=== PATIENT | female | born 2000 | race Caucasian/White ===

== ENCOUNTER 2020-11-28 17:40 | Emergency (ER) | payer OTHER, SELFPAY ==
--- NOTE | ~2020-11-28 | CT_ITS ---
EXAMINATION: CT ABDOMEN AND PELVIS WITH CONTRAST CLINICAL INFORMATION: Mid abdominal pain. Question of appendicitis. COMPARISON: None TECHNIQUE: Multidetector volumetric images were obtained from the superior aspect of the liver through the pubic symphysis following administration 85 mL of Omnipaque 350 intravenous contrast. Sagittal and coronal reformatted images were obtained on the technologist's workstation. Oral contrast: No This CT examination was performed using dose optimization techniques as appropriate, variously including the following: *Automated exposure control *Adjustment of mA and/or kV according to patient size (this includes techniques or standardized protocols for targeted exams where dose is matched to indication/reason for exam; i.e. extremities or head) *Use of iterative reconstruction technique DLP: 444 mGy-cm FINDINGS: LUNG BASES: The visualized lung bases are unremarkable. LIVER, GALLBLADDER, AND BILIARY TREE: The liver is normal in size, shape, and attenuation. No focal hepatic lesion or biliary ductal dilatation is present. Gallbladder unremarkable from a CT imaging standpoint. PANCREAS: Unremarkable. SPLEEN: Unremarkable. ADRENAL GLANDS: Unremarkable. KIDNEYS AND URETERS: The kidneys are normal in size, shape, and attenuation. No hydronephrosis, hydroureter, or calculi seen. No perinephric stranding. BLADDER: Unremarkable. GASTROINTESTINAL TRACT: The appendix is normal. There are are multiple loops of ileum which demonstrate mild edematous wall thickening reflective of an enteritis. The terminal ileum itself appears largely unremarkable. Stomach and colon are unremarkable. ABDOMINAL WALL: No significant hernia is appreciated. LYMPH NODES: Normal. VASCULAR: Unremarkable. PELVIC VISCERA: Uterus and adnexa unremarkable. OSSEOUS STRUCTURES: Unremarkable. CT/CT abdomen pelvis w con IMPRESSION: * Multiple mildly edematous and inflamed loops of ileum within the lower abdomen and pelvis reflective of an enteritis for which infectious and inflammatory etiologies are considered. * The appendix is normal. * Gallbladder unremarkable.
[2020-11-28 17:45] VITALS: BP 144/81; PULSE 128; RESP 24; TEMP 37.5; O2SAT 97; BMI 24.1
--- NOTE | 2020-11-28 19:57 | ED.ABDPAIN ---
HPI - Abdominal Pain General Chief Complaint: Abdominal Pain Stated Complaint: abd pain Time Seen by Provider: 11/28/20 18:59 Source: patient Mode of arrival: ambulatory Limitations: no limitations History of Present Illness HPI narrative: Patient presented to epigastric/mid abdominal pain described as sharp acid burning sensation since last night with diarrhea. Patient states nausea, but no fever, chills. MD elicited complaint: abdominal pain Related Data Allergies Allergy/AdvReac Type Severity Reaction Status Date / Time nut - unspecified [NUTS] Allergy Severe THROAT Verified 11/28/20 17:44 CLOSES ibuprofen [IBUPROFEN] Allergy Intermediate RASH TO ABD Verified 11/28/20 17:44 Review of Systems Review of Systems Yes all other systems are reviewed and are negative Constitutional: Reports as per HPI and Reports no additional constitutional complaints Eyes: Reports as per HPI and Reports no additional eye complaints Reports system reviewed and no additional complaints, except as documented and Reports as per HPI Cardiovascular: Reports as per HPI and Reports no additional cardiovascular complaints Respiratory: Reports as per HPI and Reports no additional respiratory complaints Gastrointestinal: Reports as per HPI, Reports no additional gastrointestinal complaints and Reports abdominal pain Genitourinary: Reports no additional female genitourinary complaints and Reports as per HPI Musculoskeletal: Reports no additional musculoskeletal complaints and Reports as per HPI Reports system reviewed and no additional complaints, except as documented and Reports as per HPI Psychiatric: Reports no additional psychiatric complaints and Reports as per HPI Physical Exam Vital Signs: Vital Signs: Last Vital Signs Temp 99.5 F 11/28/20 17:45 Pulse 128 H 11/28/20 17:45 Resp 24 H 11/28/20 17:45 BP 144/81 H 11/28/20 17:45 Pulse Ox 97 11/28/20 17:45 Body Mass Index 24.1 Const: General: acute distress Orientation/consciousness: patient oriented x3 HENMT: Head: Yes normal to inspection, Yes No palpable skull fracture present, Yes normocephalic, Yes atraumatic and No abrasion Eyes: General: appearance normal, both eyes and all related structures Neck: Neck: Yes normal visual inspection, Yes full ROM, Yes no lymphadenopathy, Yes no meningeal signs, Yes trachea midline, Yes supple and No tender Chest: Chest palpation & inspection: normal inspection of the chest and normal palpation of entire chest wall Resp: Effort & Inspection: normal respiratory effort and able to speak in complete sentences Auscultation: clear to auscultation bilaterally Cardio: Jugular venous distension: no JVD Heart sounds: S1 normal heart sound present and S2 normal heart sound present GI: Inspection: Yes normal to inspection and No abdominal wall ecchymosis Palpation (GI): not soft, not firm, Tenderness to palpation present (GI) in the epigastrum, no guarding and not rigid : General: No CVA tenderness and Yes no CVA tenderness Back/Spine/Pelvis: Back: no CVA tenderness, No CVA tenderness and No back tenderness Skin: General skin exam: no rashes or lesions noted and elasticity normal Neuro: General: patient oriented x3, no meningeal signs and CN's II-XI intact bilaterally Cranial nerves: Yes CN's II-XII intact bilaterally Extrem: General: Yes normal to inspection and Yes full ROM Psych: Appearance: grossly normal, well kempt and not disheveled Course Course Course Narrative: Patient states symptoms similar to her gastritis. Patient will be given GI cocktail including Pepcid. Patient will have labs drawn. Reevaluation(s) Reevaluation #1: Patient was sent for CT scan due to her stating epigastric/mid gastric abdominal pain. Patient was sent to rule appendicitis. CT scan came back negative for cholecystitis or appendicitis. CT scan came back positive for enteritis. Patient has no elevated white count. Patient did not have any diarrhea really episode in the ED. Patient will be discharged. Patient states she had earlier diarrhea today but none during ED visit. Repeat heart rate on monitor was 86 and Time: 23:34 MDM - Abdominal Pain MDM Narrative Medical decision making narrative: Gastroenteritis Lab Data Result diagrams: 11/28/20 20:20 11/28/20 20:20 Labs: Lab Results 11/28/20 11/28/20 11/28/20 Range/Units 20:20 20:20 20:20 WBC 9.3 (4.8-10.8) X10*3/uL RBC 4.54 (4.20-5.50) X10*6/uL Hgb 14.0 (12.0-16.0) g/dl Hct 41.9 (37-47) % MCV 92.3 (80-98) fL MCH 30.8 (27.0-33.0) pg MCHC 33.4 (31.0-35.0) g/dl RDW 12.5 (11.0-16.0) % Plt Count 339 (160-400) X10*3/uL MPV 10.0 (9.4-12.3) fL Immature Gran % (Auto) 0.2 (0.0-0.4) % Neut % (Auto) 79.6 H (45-73) % Lymph % (Auto) 12.8 L (20-40) % [place] % (Auto) 6.0 (2-11) % Eos % (Auto) 1.1 (0-4) % Baso % (Auto) 0.3 (0-2) % Lymph # (Auto) 1.2 (1.2-4.9) X10*3/uL [place] # (Auto) 0.6 (0.1-1.2) X10*3/uL Eos # (Auto) 0.1 (0.0-0.4) X10*3/uL Baso # (Auto) 0.0 (0.0-0.2) X10*3/uL Abs Immat Gran (auto) 0.02 (0.00-0.03) X10*3/uL Absolute Neuts (auto) 7.4 (2.0-8.3) X10*3/uL Absolute Nucleated RBC 0.000 (0.0-0.012) X10*3/uL Nucleated RBC % (auto) 0.0 (0.0-0.2) /100WBC Sodium 139 (135-145) mmol/L Potassium 3.6 (3.3-5.1) mmol/L Chloride 102 (96-108) mmol/L Carbon Dioxide 24 (22-29) mmol/L Anion Gap 17 (12-20) BUN 19 H (9-16) mg/dL Creatinine 0.81 (0.5-1.4) mg/dL Estim Creat Clear Calc 98.9 Estimated GFR > 60 Random Glucose 111 (60-115) mg/dL Calcium 9.8 (8.4-10.2) mg/dL Total Bilirubin 1.1 H (0.0-1.0) mg/dL Direct Bilirubin 0.4 (0.0-0.5) mg/dL AST 24 (5-31) U/L ALT 13 (0-31) U/L Alkaline Phosphatase 75 (39-117) U/L Total Protein 8.0 (6.5-8.0) g/dL Albumin 4.5 (3.5-5.0) g/dL Lipase 12 (8-78) U/L Beta HCG, Quant < 2 mIU/mL Urine Color Urine Appearance Urine pH (5.0-8.0) Ur Specific [place] (1.005-1.025) Urine Protein (NEG-TRACE) MG/DL Urine Glucose (UA) (NEG) MG/DL Urine Ketones (NEG) MG/DL Urine Blood (NEG) Urine Nitrite (NEG) Ur Leukocyte Esterase (NEG) Urine Test (NEGATIVE) 11/28/20 11/28/20 Range/Units 22:02 22:02 WBC (4.8-10.8) X10*3/uL RBC (4.20-5.50) X10*6/uL Hgb (12.0-16.0) g/dl Hct (37-47) % MCV (80-98) fL MCH (27.0-33.0) pg MCHC (31.0-35.0) g/dl RDW (11.0-16.0) % Plt Count (160-400) X10*3/uL MPV (9.4-12.3) fL Immature Gran % (Auto) (0.0-0.4) % Neut % (Auto) (45-73) % Lymph % (Auto) (20-40) % [place] % (Auto) (2-11) % Eos % (Auto) (0-4) % Baso % (Auto) (0-2) % Lymph # (Auto) (1.2-4.9) X10*3/uL [place] # (Auto) (0.1-1.2) X10*3/uL Eos # (Auto) (0.0-0.4) X10*3/uL Baso # (Auto) (0.0-0.2) X10*3/uL Abs Immat Gran (auto) (0.00-0.03) X10*3/uL Absolute Neuts (auto) (2.0-8.3) X10*3/uL Absolute Nucleated RBC (0.0-0.012) X10*3/uL Nucleated RBC % (auto) (0.0-0.2) /100WBC Sodium (135-145) mmol/L Potassium (3.3-5.1) mmol/L Chloride (96-108) mmol/L Carbon Dioxide (22-29) mmol/L Anion Gap (12-20) BUN (9-16) mg/dL Creatinine (0.5-1.4) mg/dL Estim Creat Clear Calc Estimated GFR Random Glucose (60-115) mg/dL Calcium (8.4-10.2) mg/dL Total Bilirubin (0.0-1.0) mg/dL Direct Bilirubin (0.0-0.5) mg/dL AST (5-31) U/L ALT (0-31) U/L Alkaline Phosphatase (39-117) U/L Total Protein (6.5-8.0) g/dL Albumin (3.5-5.0) g/dL Lipase (8-78) U/L Beta HCG, Quant mIU/mL Urine Color DARK YELLOW Urine Appearance CLEAR Urine pH 6.0 (5.0-8.0) Ur Specific [place] >= 1.030 H (1.005-1.025) Urine Protein TRACE (NEG-TRACE) MG/DL Urine Glucose (UA) NEG (NEG) MG/DL Urine Ketones >=80 (NEG) MG/DL Urine Blood NEG (NEG) Urine Nitrite NEG (NEG) Ur Leukocyte Esterase NEG (NEG) Urine Test NEGATIVE (NEGATIVE) Discharge Plan Discharge Clinical Impression: Gastroenteritis Patient Disposition: Home, Self-Care Instructions: Gastroenteritis (ED) Additional Instructions: Return to the ED immediately for worsening abdominal pain, inability to tolerate solid food/liquids, blood in stool, intractable fever, chills, or any other concerning symptoms. He did take [id number] Tylenol for pain relief. Referrals: Mary Peng MD [Primary Care Provider] - 2 days (CT scan shows enteritis. Patient presents to ED for abdominal pain and diarrhea. CT scan negative for appendicitis, cholecystitis, or pancreatitis.) Stand Alone Forms: Work/School Release Interventions: ED Discharge Assessment Last Done: 11/29/20 00:04 Discharge Date/Time: 11/29/20 00:06 Print Language: [place] PMF Social History Social History Advance Directives: No Advance Directives Information Provided: Yes
--- NOTE | 2020-11-28 20:00 | PC.NURSE ---
PT TO ROOM CHG INTO GOWN AND MD AT BEDSIDE FOR EVAL. PT C/O MID ABD PAIN. +ACTIVE VOMITING IN STRETCHER. HL PLACED TO LAC, LABS DRAWN TO LAB. NS UP AND RUNNING W/O SITE INTACT. PT MEDICATED PER EMAR FOR ABD PAIN AND NUASEA. WILL CONTINUE TO MONITOR PT.
[2020-11-28] MEDS: 0.9 % Sodium Chloride 1,000 ML 999 ML IV (20:21)
[2020-11-28 20:30] LABS: MANUAL DIFF FLAG NO
[2020-11-28 20:34] LABS: Basophils Percent Auto 0.3 % (0-2); Eosinophils Absolute Auto 0.1 X10*3/uL (0.0-0.4); Eosinophils Percent Auto 1.1 % (0-4); Hematocrit 41.9 % (37-47); Imm Gran Abs Auto 0.02 X10*3/uL (0.00-0.03); Imm Gran Pct Auto 0.2 % (0.0-0.4); Lymphocytes Absolute Auto 1.2 X10*3/uL (1.2-4.9); Lymphocytes Percent Auto 12.8 % (20-40); Mean Corpuscular HGB Conc 33.4 g/dl (31.0-35.0); Mean Corpuscular Hemoglobin 30.8 pg (27.0-33.0); Mean Corpuscular Volume 92.3 fL (80-98); Monocytes Absolute Auto 0.6 X10*3/uL (0.1-1.2); Neutrophils Absolute Auto 7.4 X10*3/uL (2.0-8.3); Neutrophils Percent Auto 79.6 % (45-73); Platelet Count 339 X10*3/uL (160-400); Red Blood Count 4.54 X10*6/uL (4.20-5.50); Red Cell Distribution Width 12.5 % (11.0-16.0); White Blood Count 9.3 X10*3/uL (4.8-10.8)
[2020-11-28] MEDS: Lidocaine HCl Viscous 2 % 15 ML SOLUTION MUCOUS MEM (20:34)
[2020-11-28] MEDS: PHENobarb/Hyoscy/Atropine/Scop 10 ML ELIXIR PO (20:34)
[2020-11-28] MEDS: Famotidine/PF 20 MG/2 ML VIAL IVPUSH (20:34)
[2020-11-28] MEDS: Magnesium Hydrox/Alum Hydrox 30 ML ORAL.SUSP PO (20:34)
[2020-11-28 20:56] LABS: Lipase 12 U/L (8-78)
[2020-11-28 20:58] LABS: Alanine Aminotransferase 13 U/L (0-31); Albumin Level 4.5 g/dL (3.5-5.0); Alkaline Phosphatase 75 U/L (39-117); Anion Gap 17 (12-20); Aspartate Amino Transferase 24 U/L (5-31); Bilirubin Direct 0.4 mg/dL (0.0-0.5); Bilirubin Total 1.1 mg/dL (0.0-1.0); Blood Urea Nitrogen 19 mg/dL (9-16); Calcium 9.8 mg/dL (8.4-10.2); Carbon Dioxide 24 mmol/L (22-29); Chloride 102 mmol/L (96-108); Creatinine Clr Calc Pharmacy 98.9; Estimated Glomerular Filt Rate > 60; Glucose Random 111 mg/dL (60-115); Potassium 3.6 mmol/L (3.3-5.1); Sodium 139 mmol/L (135-145)
[2020-11-28 21:28] LABS: HCG Quantitative < 2 mIU/mL
[2020-11-28 22:09] LABS: Glucose Urine UA NEG (NEG); Leukocyte Esterase Urine NEG (NEG); Nitrite Urine NEG (NEG); Specific Gravity - Urine >= 1.030 (1.005-1.025); Urine Blood NEG (NEG); Urine Ketones >=80 MG/DL (NEG); Urine Protein TRACE MG/DL (NEG-TRACE)
--- NOTE | 2020-11-28 22:09 | PC.NURSE ---
pt to ct
[2020-11-28 22:10] LABS: Appearance Urine CLEAR; Color Urine DARK YELLOW
[2020-11-28 22:12] LABS: UPreg QC Valid YES; Urine Pregnancy NEGATIVE (NEGATIVE)
[2020-11-28] MEDS: iohexoL 350 MG/ML 100 ML INFUS..BTL IV (22:15)
== END 2020-11-29 00:06 | disposition home or self-care (01) ==
PROVIDERS: Physician Assistant; Emergency Provider Emergency Medicine; PCP Internal Medicine
DX: K52.9 Noninfective gastroenteritis and colitis, unspecified (principal)
CPT/HCPCS: 36415; 74177; 80048; 80076; 81003; 81025; 83690; 84702; 85025; 96361; 96374; 99283; 99284; Q9967

== ENCOUNTER 2021-12-23 08:54 | Emergency (ER) | payer OTHER, SELFPAY ==
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
[2021-12-23 09:06] VITALS: BP 132/84; PULSE 76; RESP 16; TEMP 36.7; O2SAT 98; BMI 21.6
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
[2021-12-23 09:49] VITALS: BP 115/75; PULSE 67; TEMP 36.7; O2SAT 99
[2021-12-23] MEDS: Acetaminophen 325 MG TABLET 650 MG PO (09:53)
[2021-12-23 10:38] LABS: HCG Quantitative < 2 mIU/mL
[2021-12-23 11:31] VITALS: BP 105/69; PULSE 67; RESP 14; TEMP 36.7
== END 2021-12-23 12:27 | disposition home or self-care (01) ==
PROVIDERS: Physician Assistant; Emergency Provider Emergency Medicine; PCP Internal Medicine
DX: S13.4XXA Sprain of ligaments of cervical spine, initial encounter (principal); S06.0X0A Concussion without loss of consciousness, initial encounter; V43.52XA Car driver injured in collision with other type car in traffic accident, initial encounter; Y93.89 Activity, other specified; Y92.414 Local residential or business street as the place of occurrence of the external cause; Y99.8 Other external cause status
CPT/HCPCS: 36415; 70450; 72125; 84702; 99284

== ENCOUNTER 2022-05-06 09:14 | Emergency (ER) | payer OTHER, SELFPAY ==
--- NOTE | 2022-05-06 | ECG_ITS ---
Test Reason : syncope Blood Pressure : / mmHG Vent. Rate : 074 BPM Atrial Rate : 074 BPM P-R Int : 154 ms QRS Dur : 080 ms QT Int : 366 ms P-R-T Axes : 080 074 058 degrees QTc Int : 406 ms Normal sinus rhythm Normal ECG No previous ECGs available Referred By: Generic ED Physician Electronically Signed By:ALICIA LEONG MD
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
[2022-05-06 09:19] VITALS: BP 126/87; PULSE 73; RESP 18; TEMP 36.8; O2SAT 99; BMI 21.6
[2022-05-06 09:45] LABS: MANUAL DIFF FLAG NO
[2022-05-06 09:51] LABS: Basophils Absolute Auto 0.1 X10*3/uL (0.0-0.2); Basophils Percent Auto 0.9 % (0-2); Eosinophils Absolute Auto 0.3 X10*3/uL (0.0-0.4); Eosinophils Percent Auto 3.3 % (0-4); Hematocrit 36.3 % (37.0-47.0); Hemoglobin 12.1 g/dl (12.0-16.0); Imm Gran Abs Auto 0.02 X10*3/uL (0.00-0.03); Imm Gran Pct Auto 0.2 % (0.0-0.4); Lymphocytes Absolute Auto 1.7 X10*3/uL (1.2-4.9); Mean Corpuscular HGB Conc 33.3 g/dl (31.0-35.0); Mean Corpuscular Hemoglobin 30.8 pg (27.0-33.0); Mean Corpuscular Volume 92.4 fL (80.0-98.0); Mean Platelet Volume 9.9 fL (9.4-12.3); Monocytes Absolute Auto 0.7 X10*3/uL (0.1-1.2); Monocytes Percent Auto 7.7 % (2-11); Neutrophils Absolute Auto 5.7 x10*3/uL (2.0-8.3); Neutrophils Percent Auto 67.9 % (45-73); Platelet Count 293 X10*3/uL (160-400); Red Blood Count 3.93 X10*6/uL (4.20-5.50); Red Cell Distribution Width 12.4 % (11.0-16.0); White Blood Count 8.4 X10*3/uL (4.8-10.8)
[2022-05-06 09:59] LABS: Anion Gap 14 (12-20); Blood Urea Nitrogen 13 mg/dL (9-16); Calcium 9.1 mg/dL (8.4-10.2); Carbon Dioxide 23 mmol/L (22-29); Chloride 107 mmol/L (96-108); Creatinine Clr Calc Pharmacy 110.2; Estimated Glomerular Filt Rate > 60; Glucose Random 94 mg/dL (60-115); Potassium 4.1 mmol/L (3.3-5.1); Sodium 140 mmol/L (135-145)
[2022-05-06 10:07] LABS: HCG Quantitative < 2 mIU/mL
--- NOTE | 2022-05-06 12:48 | ED.SYNCOPE ---
HPI - Syncope General Chief Complaint: Syncope Stated Complaint: passed out/face INJ Time Seen by Provider: 05/06/22 12:29 Source: patient Mode of arrival: ambulatory Limitations: no limitations History of Present Illness HPI narrative: This is a 21-year-old female who is previously healthy who presents after a syncopal episode. Patient tells me that when she woke up this morning she was feeling lightheaded when she changed positions. She did not eat or drink anything. She was using the bathroom voiding and when she stood up she felt very lightheaded and next thing she knew she woke up on the ground. Patient denies any incontinence of urine or stool. She did report that she hit her face and has several abrasions of the face. She denies any headache, neck pain, vision changes, vomiting, chest or abdominal pain. Last known tetanus is unknown. No anticoagulation use Related Data Previous Rx's Medication Instructions Recorded methocarbamol 750 mg tablet 750 mg PO Q8H 5 days #15 tabs 12/23/21 Allergies Allergy/AdvReac Type Severity Reaction Status Date / Time nut - unspecified [NUTS] Allergy Severe THROAT Verified 11/28/20 17:44 CLOSES ibuprofen [IBUPROFEN] Allergy Intermediate RASH TO ABD Verified 11/28/20 17:44 Review of Systems Review of Systems: Yes all other systems are reviewed and are negative Constitutional: Constitutional: Reports no additional constitutional complaints, Denies body ache(s), Denies chills, Denies fever(s), Denies headache(s) and Denies weakness Eyes: Eyes: Reports no additional eye complaints and Denies change in vision ENT: Reports system reviewed and no additional complaints, except as documented, Reports dizziness, Denies headache(s), Denies nasal congestion, Denies nasal discharge and Denies neck pain Cardiovascular: Cardiovascular: Reports no additional cardiovascular complaints, Denies chest pain, Reports syncope, Denies leg edema and Denies dyspnea Respiratory: Respiratory: Reports no additional respiratory complaints, Denies cough and Denies dyspnea Gastrointestinal: Gastrointestinal: Reports no additional gastrointestinal complaints, Denies abdominal pain, Denies diarrhea, Denies nausea and Denies vomiting Genitourinary: Genitourinary: Reports no additional female genitourinary complaints and Denies urinary incontinence Musculoskeletal: Musculoskeletal: Reports no additional musculoskeletal complaints, Denies back pain, Denies arthralgias, Denies joint swelling, Denies neck pain, Denies numbness and Denies tingling Integumentary/Breasts: Skin/Breast: Reports system reviewed and no additional complaints, except as docu and Denies rash Neurologic: Reports system reviewed and no additional complaints, except as documented, Denies Abnormal speech present, Reports dizziness, Reports syncope, Denies headache(s), Denies numbness, Denies tingling and Denies weakness [facility] Past Medical History Attestation statement: The following information was validated with the patient. Source: old records reviewed and nursing notes reviewed Medical History No known health problems Social History Social History Alcohol intake: never Advance Directives: Yes Advance Directives Information Provided: Yes Advance Directives on File: No Physical Exam Vital Signs: Vital Signs: Last Vital Signs Temp 98.1 F 05/06/22 16:00 Pulse 70 05/06/22 16:00 Resp 16 05/06/22 16:00 BP 123/80 05/06/22 16:00 Pulse Ox 98 05/06/22 16:00 O2 Del Method 05/06/22 16:00 BMI result Body Mass Index 21.6 Const: General: cooperative, healthy appearing, comfortable and no acute distress Orientation/consciousness: patient oriented x3 Limitations: no limitations HEENT: Head: Yes normal to inspection, No Mueller's sign and No raccoon eyes Head images: 1. Laceration in V shape approximately 3cm 2. 2cm laceration Ears: hearing grossly normal bilaterally and TM's normal bilaterally General nose exam: Normal external nose present Face and sinus: Yes normal facial exam Mouth: Normal oral and palatal mucosa present Throat: Yes posterior oropharynx normal Eyes: General: appearance normal, both eyes and all related structures Pupils: Equal, round and reactive pupils present Neck: Neck: Yes normal visual inspection, Yes full ROM, Yes no lymphadenopathy and Yes no meningeal signs Chest: Chest palpation & inspection: normal inspection of the chest Resp: Effort & Inspection: normal respiratory effort Auscultation: clear to auscultation bilaterally Cardio: Rate: regular rate Rhythm: regular rhythm Peripheral pulses: Peripheral pulses 2+ throughout GI: Inspection: Yes normal to inspection Palpation (GI): Soft to palpation and nontender Auscultation: normal bowel sounds Back/Spine/Pelvis: Thoracic/Lumbar Spine: thoracic and lumbar spine normal to inspection Skin: General skin exam: no rashes or lesions noted Neuro: General: patient oriented x3, no meningeal signs, no focal motor deficits and normal sensation to monofilament Cranial nerves: Yes CN's II-XII intact bilaterally, Yes Equal, round and reactive pupils present, Yes Bilaterally intact EOM present, Yes Nystagmus not present, Yes Normal facial strength present, Yes Midline tongue present and Yes Normal gag reflex present Cognition (Neuro): normal cognition Speech: No Abnormal speech present Gait exam (Neuro): Normal gait present Motor exam (neuro): 5/5 motor strength present throughout Sensory Exam: Normal double simultaneous stimulation for sensation Extrem: General: Yes normal to inspection Course Course Course Narrative: Labs are unremarkable. CT head and facial bones show no acute injury. Orthostatics are negative. is negative. ? Vasovagal versus orthostasis Recommend patient change positions slowly. She should eat small frequent meals throughout the day and stay hydrated. See procedure note for wound repair. I did recommend she follow-up with her primary care doctor in the next week due to syncopal episode. Reviewed worrisome signs and symptoms of when to return to the emergency department. Comfortable discharge home. MDM - Syncope MDM Narrative Medical decision making narrative: 21 female healthy presents after syncopal episode. Patient tells me that shoe was feeling lightheaded and dizzy today. After going to the bathroom she stood up felt lightheaded and had a syncopal episode. There is no reports of shaking or incontinence. Patient tells me that she has not had anything to eat or drink today. She does feel like she is hydrating appropriately. No complaints on arrival with the exception of some lacerations over the face. On arrival vitals are stable. Normal neurological exam. Patient does have a laceration over the right periorbital area and over the chin. Will check EKG, orthostatics, labs, and CT head Differential Diagnosis Differential diagnosis: Likely syncope due to orthostatic hypotension, vasovagal syncope and dehydration Medical Records Attestation: I reviewed the patient's medical records. Lab Data Attestation: I reviewed the patient's lab results. Result diagrams: 05/06/22 09:34 05/06/22 09:34 Labs: Lab Results 05/06/22 05/06/22 05/06/22 Range/Units 09:34 09:34 09:34 WBC 8.4 (4.8-10.8) X10*3/uL RBC 3.93 L (4.20-5.50) X10*6/uL Hgb 12.1 (12.0-16.0) g/dl Hct 36.3 L (37.0-47.0) % MCV 92.4 (80.0-98.0) fL MCH 30.8 (27.0-33.0) pg MCHC 33.3 (31.0-35.0) g/dl RDW 12.4 (11.0-16.0) % Plt Count 293 (160-400) X10*3/uL MPV 9.9 (9.4-12.3) fL Immature Gran % (Auto) 0.2 (0.0-0.4) % Neut % (Auto) 67.9 (45-73) % Lymph % (Auto) 20.0 (20-40) % Angelina % (Auto) 7.7 (2-11) % Eos % (Auto) 3.3 (0-4) % Baso % (Auto) 0.9 (0-2) % Lymph # (Auto) 1.7 (1.2-4.9) X10*3/uL Angelina # (Auto) 0.7 (0.1-1.2) X10*3/uL Eos # (Auto) 0.3 (0.0-0.4) X10*3/uL Baso # (Auto) 0.1 (0.0-0.2) X10*3/uL Abs Immat Gran (auto) 0.02 (0.00-0.03) X10*3/uL Absolute Neuts (auto) 5.7 (2.0-8.3) x10*3/uL Absolute Nucleated RBC 0.000 (0.0-0.012) X10*3/uL Nucleated RBC % (auto) 0.0 (0.0-0.2) /100WBC Sodium 140 (135-145) mmol/L Potassium 4.1 (3.3-5.1) mmol/L Chloride 107 (96-108) mmol/L Carbon Dioxide 23 (22-29) mmol/L Anion Gap 14 (12-20) BUN 13 (9-16) mg/dL Creatinine 0.72 (0.5-1.4) mg/dL Estim Creat Clear Calc 110.2 Estimated GFR > 60 Random Glucose 94 (60-115) mg/dL Calcium 9.1 D (8.4-10.2) mg/dL Beta HCG, Quant < 2 mIU/mL Imaging Data ct head/facial bones: Attestation: I personally reviewed and interpreted this imaging study as follows: Radiologist's impression: INDINGS: There is focal soft tissue laceration in the medial right supraorbital area without radiopaque foreign body. The globes and orbital mcgrath, including lamina papyracea, are intact.? The orbital apex, optic canals, and retrobulbar fat planes are normal.? The maxilla, mandible and temporomandibular joints are normal. Nasal bones, pterygoid plates and zygomatic arches are normal. Mucous retention cyst along the anterior wall of the right maxillary sinus. Minimal secretions along the posterior wall of the sphenoid sinus. Otherwise, the paranasal sinuses are well-aerated and the ostiomeatal units are patent.? No air-fluid levels in the paranasal sinuses. The osteomeatal units are patent. CT/CT facial bones wo con IMPRESSION: *? Small soft tissue laceration noted in right supraorbital area. *? No evidence of maxillofacial bone injury. The horizontal and vertical buttresses of the face are intact. ECG Data Attestation: I personally reviewed and interpreted this ECG as follows: ECG interpretation date: 05/06/22 ECG interpretation time: :23 Interpretation: Normal sinus rhythm with a rate of 74, normal HI, normal QRS, normal QT Procedures Laceration Laceration 1: Site: other (chin) Size (cm): 2 Description: linear Depth: simple, single layer Local Anesthetic: lidocaine 1% Amount of anesthesia used (mL): 1 Pre-repair: wound explored and irrigated extensively Skin layer closed with: other (prolene) Size (cm): 6-0 Number of sutures: 4 Technique: simple, interrupted Laceration 2: Site: face (periorbital) Side (If applicable): right Size (cm): 3 Description: linear Depth: simple, single layer Local Anesthetic: lidocaine 1% Amount of anesthesia used (mL): 1 Pre-repair: wound explored and irrigated extensively Skin layer closed with: other (prolene) Size (cm): 6-0 Number of sutures: 4 Technique: simple, interrupted Discharge Plan Discharge Clinical Impression: Syncope, Face lacerations Patient Disposition: Home, Self-Care Instructions: Laceration (ED), Syncope (ED) Additional Instructions: You have 4 sutures in your right eyebrow and 4 sutures in your chin. You need to have these removed in 5-7 days. You may wash your face gently with soap and water. No scrubbing and no washcloths. Your CT scan and blood work were are normal. Follow-up with your primary care doctor as discussed Prescriptions: No Action methocarbamol 750 mg tablet 750 mg PO Q8H 5 Days Qty: 15 0RF Referrals: Mary Peng MD [Primary Care Provider] - Stand Alone Forms: Work/School Release Interventions: ED Discharge Assessment Last Done: 05/06/22 16:40
[2022-05-06 13:07] VITALS: BP 119/74; PULSE 75; RESP 12; O2SAT 98
[2022-05-06 13:09] VITALS: BP 123/74; PULSE 73
[2022-05-06 13:10] VITALS: BP 115/80; PULSE 79
[2022-05-06] MEDS: Diphth,Pertus(ACell),Tet Adult 0.5 ML SYRINGE IM (13:41)
[2022-05-06 14:33] VITALS: BP 116/77; PULSE 76; RESP 18; O2SAT 99
[2022-05-06 16:00] VITALS: BP 123/80; PULSE 70; RESP 16; TEMP 36.7; O2SAT 98
== END 2022-05-06 16:43 | disposition home or self-care (01) ==
PROVIDERS: Emergency Provider Emergency Medicine; PCP Internal Medicine
DX: S01.81XA Laceration without foreign body of other part of head, initial encounter (principal); R55 Syncope and collapse; W01.10XA Fall on same level from slipping, tripping and stumbling with subsequent striking against unspecified object, initial encounter; Y93.9 Activity, unspecified; Y92.9 Unspecified place or not applicable; Y99.9 Unspecified external cause status; Z79.899 Other long term (current) drug therapy
CPT/HCPCS: 12013; 36415; 70450; 70486; 80048; 84702; 85025; 90471; 90715; 93005; 99284